=== PATIENT | male | born 1995 | race Caucasian/White ===

== ENCOUNTER 2017-02-10 18:27 | Emergency (ER) | payer OTHER ==
[~2017-02-10] VITALS: Ht 185.4 cm; Wt 89.8 kg
[2017-02-10 18:55] VITALS: BP 133/69
[2017-02-10] MEDS ORDERED: IBUPROFEN 800 MG TABLET. PO ONE (19:15)
[2017-02-10] MEDS ORDERED: DEXAMETHASONE SOD PHOS 20 MG/5 ML VIAL. IM ONE (19:45)
[2017-02-10] MEDS ORDERED: LIDOCAINE 2% VISCOUS 15 ML SOLUTION. SWSW ONE (19:45)
[2017-02-10 19:51] LABS: OBC FLU VALID
[2017-02-10] MEDS ORDERED: PRED50TA PO (20:42)
[2017-02-10] MEDS ORDERED: HYDR5SUS PO (20:42)
--- NOTE | 2017-02-10 20:42 | PHYS DOC ---
Past Medical History Past Medical History: No Pertinent History Past Surgical History: No Surgical History Alcohol Use: None Drug Use: None Adult General Chief Complaint Chief Complaint: FEVER HPI HPI Patient is a 21 year old medical presents with fever and sore throat and a cough for 6 days. Patient states he was seen at urgent care today and was started on amoxicillin. Review of Systems Review of Systems Constitutional: Denies fever or chills [] Eyes: Denies change in visual acuity, redness, or eye pain [] HENT: Reports sore throat Denies nasal congestion Respiratory: Reports cough. Denies shortness of breath [] Cardiovascular: No additional information not addressed in HPI [] GI: Denies abdominal pain, nausea, vomiting, bloody stools or diarrhea [] : Denies dysuria or hematuria [] Musculoskeletal: Denies back pain or joint pain [] Integument: Denies rash or skin lesions [] Neurologic: Denies headache, focal weakness or sensory changes [] Endocrine: Denies polyuria or polydipsia [] All other systems were reviewed and found to be within normal limits, except as documented in this note. Current Medications Current Medications Current Medications Medications (Trade) Dose Ordered Sig/Tracie Start Time Stop Time Status Last Admin Dose Admin Dexamethasone Sodium Phosphate (Decadron) 10 mg 1X ONCE 02/10/17 19:45 02/10/17 19:46 DC 02/10/17 19:43 10 MG Ibuprofen (Motrin) 800 mg 1X ONCE 02/10/17 19:15 02/10/17 19:16 DC 02/10/17 19:28 800 MG Lidocaine HCl (Viscous Lidocaine) 15 ml 1X ONCE 02/10/17 19:45 02/10/17 19:46 DC 02/10/17 19:43 15 ML Allergies Allergies Allergies Coded Allergies Type Severity Reaction Last Updated Verified No Known Drug Allergies 02/10/17 No Physical Exam Physical Exam Constitutional: Well developed, well nourished, no acute distress, non-toxic appearance. [] HENT: Normocephalic, atraumatic, bilateral external ears normal, oropharynx moist, no oral exudates, nose normal. [] +2 tonsils with moderate erythema and mild exudate. +2 anterior cervical adenopathy. Midline uvula. Eyes: PERRLA, EOMI, conjunctiva normal, no discharge. [] Neck: Normal range of motion, no tenderness, supple, no stridor. [] Cardiovascular:Heart rate regular rhythm, no murmur [] Lungs & Thorax: Bilateral breath sounds clear to auscultation [] Abdomen: Bowel sounds normal, soft, no tenderness, no masses, no pulsatile masses. [] Skin: Warm, dry, no erythema, no rash. [] Back: No tenderness, no CVA tenderness. [] Extremities: No tenderness, no cyanosis, no clubbing, ROM intact, no edema. [] Neurologic: Alert and oriented X 3, normal motor function, normal sensory function, no focal deficits noted. [] Psychologic: Affect normal, judgement normal, mood normal. [] Current Patient Data Vital Signs Vital Signs Date Time Temp Pulse Resp B/P (MAP) Pulse Ox O2 Delivery O2 Flow Rate FiO2 02/10/17 18:55 100.0 115 18 96 Room Air 100.0 Lab Values Laboratory Tests Test 02/10/17 19:21 Influenza Type A Antigen Negative (NEGATIVE) Influenza Type B Antigen Negative (NEGATIVE) EKG EKG [] Radiology/Procedures Radiology/Procedures [] Course & Med Decision Making Course & Med Decision Making Pertinent Labs and Imaging studies reviewed. (See chart for details) Patient is in the ED with sore throat fever and a cough. Temperature 100.0 regular. He was started on amoxicillin earlier today at urgent care. Physical exam consistent with tonsillitis. Recommended he continues taking the amoxicillin. Tylenol Motrin for pain or fever. Discharged with prednisone and lidocaine viscous. Saltwater gargles recommended. Follow-up with PCP next week. Dragon Disclaimer Dragon Disclaimer This electronic medical record was generated, in whole or in part, using a voice recognition dictation system. Departure Departure Impression: Primary Impression: Fever Additional Impressions: Acute tonsillitis Cough Disposition: HOME, SELF-CARE Condition: STABLE Referrals: CAROLYN DEE MD (PCP) Follow-up with your doctor next week Patient Instructions: Cough, Adult, [id number], Fever, Adult, [id number], Tonsillitis, [id number] Additional Instructions: You were seen with acute tonsillitis, fever and a cough. Continue taking amoxicillin. Take the rest of the prescribed medicines as ordered. Use saltwater gargles. Throat. Take Tylenol every 4 hours and Motrin every 6 hours for fever or pain. Push fluids. Follow-up with your doctor next week on Monday. Please return to the emergency room if symptoms worsen. Scripts Hydrocodone/Chlorphen Polis (HYDROCODONE-CHLORPHENIRAM SUSP) 5 Ml Sandhya.er.12h 5 ML PO PRN Q12HR Y for COUGH, #50 ML 0 Refills Prov: TEMO MONTGOMERY APRN 02/10/17 Prednisone (PREDNISONE) 50 Mg Tablet 1 TAB PO DAILY, #4 TAB Prov: TEMO MONTGOMERY APRN 02/10/17 Problem Qualifiers Primary Impression: Fever Fever type: unspecified Qualified Codes: R50.9 - Fever, unspecified Additional Impressions: Acute tonsillitis Pharyngitis/tonsillitis etiology: unspecified etiology Qualified Codes: J03.90 - Acute tonsillitis, unspecified TEMO MONTGOMERY APRN Feb 10, 2017 20:42
== END 2017-02-10 20:48 | disposition home or self-care (01) ==
LOC: ER 18:27
DX: J03.90 Acute tonsillitis, unspecified (principal)
CPT/HCPCS: 87804; 96372; 99284; J1100

== ENCOUNTER 2017-07-21 15:14 | Emergency (ER) | payer OTHER ==
[2017-07-21 15:56] LABS: ADD MAN DIFF? NO
[2017-07-21] MEDS: IV NORMAL SALINE 1000ML BAG 1,000 ML IV (15:57)
[2017-07-21] MEDS: ONDANSETRON PF 4 MG/2 ML VIAL. IV (15:57)
[2017-07-21] MEDS: MORPHINE SULFATE 4 MG/ML DISP.SYRIN. IV/SQ (15:58)
[2017-07-21 15:59] LABS: BASO % 1 % (0-3); EOS # 0.1 x10^3/uL (0.0-0.7); EOS % 1 % (0-3); HEMATOCRIT 44.2 % (39.0-53.0); HEMOGLOBIN 15.3 g/dL (13.0-17.5); LYMPH % 25 % (24-48); MEAN CORPUSCULAR HEMOGLOBIN 30 pg (25-35); MEAN CORPUSCULAR HGB CONC 35 g/dL (31-37); MEAN CORPUSCULAR VOLUME 87 fL (79-100); MONO # 0.6 x10^3/uL (0.0-1.1); MONO % 7 % (0-9); NEUT # 5.2 x10^3uL (1.8-7.7); NEUT % 66 % (31-73); PLATELET COUNT 254 x10^3/uL (140-400); RED BLOOD COUNT 5.09 x10^6/uL (4.30-5.70); RED CELL DISTRIBUTION WIDTH 13.1 % (11.5-14.5); WHITE BLOOD COUNT 7.9 x10^3/uL (4.0-11.0)
[2017-07-21 16:03] LABS: BILIRUBIN,URINE SMALL (NEG); CLARITY,URINE CLOUDY; COLOR,URINE RED; GLUCOSE,URINE NEGATIVE (NEG); NITRITE,URINE NEGATIVE (NEG); PH,URINE 5.5; PROTEIN,URINE 100 mg/dL (NEG-TRACE); UROBILINOGEN,URINE 0.2 mg/dL (0.2 mg/dL)
[2017-07-21 16:20] LABS: ANION GAP 8 (6-14); BLOOD UREA NITROGEN 14 mg/dL (8-26); BUN/CREATININE RATIO 12 (6-20); CALCIUM 9.1 mg/dL (8.5-10.1); CARBON DIOXIDE 30 mmol/L (21-32); CHLORIDE 104 mmol/L (98-107); CREATININE 1.2 mg/dL (0.7-1.3); GFR 77.2; GLUCOSE 102 mg/dL (70-99); POTASSIUM 3.7 mmol/L (3.5-5.1); SODIUM 142 mmol/L (136-145)
[2017-07-21 16:26] LABS: ALBUMIN 4.4 g/dL (3.4-5.0); ALBUMIN/GLOBULIN RATIO 1.3 (1.0-1.7); ALK PHOS 69 U/L (46-116); ALT (SGPT) 46 U/L (16-63); AST (SGOT) 22 U/L (15-37); LIPASE 91 U/L (73-393); TOTAL BILIRUBIN 0.6 mg/dL (0.2-1.0); TOTAL PROTEIN 7.7 g/dL (6.4-8.2)
[2017-07-21 16:34] LABS: BACTERIA,URINE 0 /HPF (0-FEW); CKMB INDEX 0.4 % (0-4); CKMB MASS 0.8 ng/mL (0.0-3.6); CREATINE KINASE 213 U/L (39-308); RBC,URINE TNTC /HPF (0-2); WBC,URINE 0 /HPF (0-4)
[2017-07-21] MEDS: KETOROLAC 30 MG/ML INJ. IV (17:46)
[2017-07-21] MEDS: TAMSULOSIN 0.4 MG CAP.ER.24H. PO (17:46)
== END 2017-07-21 18:05 | disposition home or self-care (01) ==
LOC: ER 15:14
DX: N20.0 Calculus of kidney (principal)
CPT/HCPCS: 36415; 74176; 76870; 80053; 81001; 82553; 83690; 85025; 87086; 96361; 96374; 96375; 99285-25; J1885; J2270; J2405; J7030